=== PATIENT | female | born 1980 | race Caucasian/White ===

== ENCOUNTER 2019-12-20 12:44 | Emergency (ER) | payer SELFPAY ==
--- NOTE | 2019-12-20 13:13 | ER ---
Nurse's Notes [facility] Name: Vivian Kumar Age: 39 yrs Sex: Female : 1980 Arrival Date: 12/20/2019 Time: 12:47 Bed 28 Private MD: Diagnosis: Other otitis externa, right ear;Otitis media, unspecified, right ear Presentation: 12/20 13:05 Presenting complaint: Patient states: last Jul, we went to [facility] and my mg2 right ear got infected. i had a lot of antibiotic , steroid treatment but nothing seems to work. it also starts to bleed today. Transition of care: patient was not received from another setting of care. Onset of symptoms was July 2019. Risk Assessment: Do you want to hurt yourself or someone else? Patient reports no desire to harm self or others. Initial Sepsis Screen: Does the patient meet any 2 criteria? No. Patient's initial sepsis screen is negative. Does the patient have a suspected source of infection? No. Patient's initial sepsis screen is negative. Care prior to arrival: None. 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 - Coronavirus screen:: The patient has NOT traveled to [place] in the past 14 days. Proceed with normal triage process as indicated. - Social history:: Smoking status: Patient reports the use of cigarette tobacco products, smokes one pack cigarettes per day. - Ebola Screening: : No symptoms or risks identified at this time. Screenin:09 Abuse screen: Denies threats or abuse. Denies injuries from another. Nutritional mg2 screening: No deficits noted. Tuberculosis screening: No symptoms or risk factors identified. Fall Risk None identified. Assessment: 13:09 General: Appears in no apparent distress. comfortable, Behavior is calm, cooperative. mg2 Pain: Complains of pain in right ear. Neuro: Level of Consciousness is awake, alert, obeys commands, Oriented to person, place, time, situation. Cardiovascular: Capillary refill < 3 seconds Patient's skin is warm and dry. Respiratory: Airway is patent Respiratory effort is even, unlabored, Respiratory pattern is regular, symmetrical. GI: No signs and/or symptoms were reported involving the gastrointestinal system. : No signs and/or symptoms were reported regarding the genitourinary system. EENT: Reports pain in right ear. Derm: Skin is intact, is healthy with good turgor, Skin is pink, warm \T\ dry. normal. Musculoskeletal: Circulation, motion, and sensation intact. Capillary refill < 3 seconds. Vital Signs: 13:07 BP 108 / 87; Pulse 70; Resp 18; Temp 97.9; Pulse Ox 100% on R/A; Height 4 ft. 11 in. mg2 (149.86 cm); ED Course: 12:47 Patient arrived in ED. mr 12:48 Jenise March FNP-C is [facility]. kb 12:48 Magdi Hernandez MD is Attending Physician. kb 13:05 Lorenzo Giraldo, RN is Primary Nurse. mg2 13:07 Triage completed. mg2 13:07 Arm band placed on. mg2 13:10 Patient has correct armband on for positive identification. mg2 13:10 No provider procedures requiring assistance completed. Patient did not have IV access mg2 during this emergency room visit. Administered Medications: No medications were administered Outcome: 13:11 Discharge ordered by MD. kb 13:19 Discharged to home ambulatory. ca1 13:19 Condition: stable 13:19 Discharge instructions given to patient, Instructed on discharge instructions, follow up and referral plans. Demonstrated understanding of instructions, follow-up care, medications, Prescriptions given X 2. 13:20 Patient left the ED. ca1 Signatures: Jenise March FNP-C FNP-Jeanne Gisel Paiz Lorenzo Giraldo, RN RN mg2 Vero Ramirez RN RN ca1
--- NOTE | 2019-12-20 13:13 | EDPHYS ---
Physician Documentation [facility] Name: Vivian Kumar Age: 39 yrs Sex: Female : 1980 Arrival Date: 12/20/2019 Time: 12:47 Bed 28 Private MD: ED Physician Magdi Hernandez HPI: 12/20 13:22 This 39 yrs old Female presents to ER via Ambulatory with complaints of Ear kb Pain. 13:22 The patient presents with drainage, pain, tenderness. The complaints affect the right kb ear. Onset: The symptoms/episode began/occurred 6 month(s) ago. Modifying factors: The symptoms are alleviated by nothing, the symptoms are aggravated by touching. Associated signs and symptoms: The patient has no apparent associated signs or symptoms. Severity of symptoms: At their worst the symptoms were moderate in the emergency department the symptoms are unchanged. The patient has not experienced similar symptoms in the past. The patient has not recently seen a physician. 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 - Coronavirus screen:: The patient has NOT traveled to [place] in the past 14 days. Proceed with normal triage process as indicated. - Social history:: Smoking status: Patient reports the use of cigarette tobacco products, smokes one pack cigarettes per day. - Ebola Screening: : No symptoms or risks identified at this time. ROS: 13:20 Constitutional: Negative for fever, chills, and weight loss, Neck: Negative for injury, kb pain, and swelling, Cardiovascular: Negative for chest pain, palpitations, and edema, Respiratory: Negative for shortness of breath, cough, wheezing, and pleuritic chest pain, Abdomen/GI: Negative for abdominal pain, nausea, vomiting, diarrhea, and constipation, Back: Negative for injury and pain, MS/Extremity: Negative for injury and deformity, Skin: Negative for injury, rash, and discoloration, Neuro: Negative for headache, weakness, numbness, tingling, and seizure. 13:21 ENT: Positive for drainage from ear(s), ear pain. kb Exam: 13:21 Constitutional: This is a well developed, well nourished patient who is awake, alert, kb and in no acute distress. Head/Face: Normocephalic, atraumatic. Neck: Trachea midline, no thyromegaly or masses palpated, and no cervical lymphadenopathy. Supple, full range of motion without nuchal rigidity, or vertebral point tenderness. No Meningismus. Chest/axilla: Normal chest wall appearance and motion. Nontender with no deformity. No lesions are appreciated. Cardiovascular: Regular rate and rhythm with a normal S1 and S2. No gallops, murmurs, or rubs. Normal PMI, no JVD. No pulse deficits. Respiratory: Lungs have equal breath sounds bilaterally, clear to auscultation and percussion. No rales, rhonchi or wheezes noted. No increased work of breathing, no retractions or nasal flaring. Abdomen/GI: Soft, non-tender, with normal bowel sounds. No distension or tympany. No guarding or rebound. No evidence of tenderness throughout. Skin: Warm, dry with normal turgor. Normal color with no rashes, no lesions, and no evidence of cellulitis. MS/ Extremity: Pulses equal, no cyanosis. Neurovascular intact. Full, normal range of motion. Neuro: Awake and alert, GCS 15, oriented to person, place, time, and situation. Cranial nerves II-XII grossly intact. Motor strength 5/5 in all extremities. Sensory grossly intact. Cerebellar exam normal. Normal gait. 13:21 ENT: External ear(s): are unremarkable, Ear canal(s): erythema, that is moderate, of the right canal, swelling, that is moderate, of the right canal, TM's: bulging, on the right, erythema, that is moderate, on the right, Nose: is normal, Mouth: is normal, Posterior pharynx: is normal. Vital Signs: 13:07 BP 108 / 87; Pulse 70; Resp 18; Temp 97.9; Pulse Ox 100% on R/A; Height 4 ft. 11 in. mg2 (149.86 cm); MDM: 13:00 Patient medically screened. kb 13:17 Data reviewed: vital signs, nurses notes. Data interpreted: Pulse oximetry: on room air kb is 100 %. Interpretation: normal. Counseling: I had a detailed discussion with the patient and/or guardian regarding: the historical points, exam findings, and any diagnostic results supporting the discharge/admit diagnosis, the need for outpatient follow up, an ENT specialist, to return to the emergency department if symptoms worsen or persist or if there are any questions or concerns that arise at home. Administered Medications: No medications were administered Disposition: 14:31 Co-signature as Attending Physician, Magdi Hernandez MD. rn Disposition: 12/20/19 13:11 Discharged to Home. Impression: Other otitis externa, right ear, Otitis media, unspecified, right ear. - Condition is Stable. - Discharge Instructions: Otitis Externa, [id number], Otitis Media, Adult, Dkgp-[id number], Ear Drops, Adult, [id number]. - Prescriptions for cefdinir 300 mg Oral capsule - take 1 capsule by ORAL route every 12 hours for 10 days; 20 capsule. Ciprodex 0.3- 0.1 % Otic Drops, Suspension - instill 4 drop by OTIC route every 12 hours for 7 days , for ears ONLY; 1 Container. - Medication Reconciliation Form, Thank You Letter, Antibiotic Education, Prescription Opioid Use form. - Follow up: Emergency Department; When: As needed; Reason: Worsening of condition. Follow up: Private Physician; When: 2 - 3 days; Reason: Recheck today's complaints, Continuance of care, Re-evaluation by your physician. Signatures: Jenise March, CHIEF WHEELAGE CLERK-C CHIEF WHEELAGE CLERK-Ckb Magdi Hernandez MD MD rn Gardose, Michele, RN RN mg2 Vero Ramirez RN RN ca1 Corrections: (The following items were deleted from the chart) 13:20 13:11 12/20/2019 13:11 Discharged to Home. Impression: Other otitis externa, right ear; ca1 Otitis media, unspecified, right ear. Condition is Stable. Forms are Medication Reconciliation Form, Thank You Letter, Antibiotic Education, Prescription Opioid Use. Follow up: Emergency Department; When: As needed; Reason: Worsening of condition. Follow up: Private Physician; When: 2 - 3 days; Reason: Recheck today's complaints, Continuance of care, Re-evaluation by your physician. kb 13:21 13:20 Constitutional: Negative for fever, chills, and weight loss, Neck: Negative for kb injury, pain, and swelling, Cardiovascular: Negative for chest pain, palpitations, and edema, Respiratory: Negative for shortness of breath, cough, wheezing, and pleuritic chest pain, Abdomen/GI: Negative for abdominal pain, nausea, vomiting, diarrhea, and constipation, MS/Extremity: Negative for injury and deformity, Skin: Negative for injury, rash, and discoloration, Neuro: Negative for headache, weakness, numbness, tingling, and seizure, kb
[2019-12-20 14:11] VITALS: BP 108/87; TEMP 97.9; O2SAT 100
== END 2019-12-20 13:20 | disposition home or self-care (01) ==
LOC: ER 12:44
DX: H66.91 Otitis media, unspecified, right ear (principal); H60.91 Unspecified otitis externa, right ear
CPT/HCPCS: 99282

== ENCOUNTER 2020-04-02 13:26 | Emergency (ER) | payer SELFPAY ==
--- OUTSIDE RECORDS SUMMARY | 2020-04-02 14:07 | XMS REPORT | Continuity of Care Document ---
:1980 Author Organization [facility] t Address [address] [place] [address] Care Team Providers Name Role Phone Juan Ramon COCHRAN Primary Care Physician Payers Payer Name Policy Type Policy Number Effective Date Expiration Date S ource Problems This patient has no known problems. Allergies, Adverse Reactions, Alerts Allergy Allergy Status Severity Reaction(s) Onset Inactive Treating Comm ents Source Name Type Date Date Clinician Pen[place] DA Active U 2018-11 [facility] ins 11-05 [facility] Medications This patient has no known medications. Procedures This patient has no known procedures. Encounters Start End Encounter Admission Attending Care Care Encounter Source Date/Time Date/Time Type Type Clinicians Facility Department ID 2019-09-08 2019-09-08 Departed [facility] [id number] [address] [place] [address]. 14:55:00 15:43:00 Emergency [facility] Results This patient has no known results.
[2020-04-02 14:30] LABS: Absolute Lymphocytes (CBC) 1.4 K/uL (0.7-4.9); Basophils % 0.7 % (0-1.3); Lymphocytes % 15.4 % (15.3-44.8); MPV 7.8 fL (7.6-11.3); RBC Red Blood Cell Count 4.84 M/uL (3.86-4.86)
[2020-04-02] MEDS ORDERED: ONDANSETRON 4 MG/2 ML VIAL ONE (14:40)
[2020-04-02] MEDS ORDERED: MORPHINE 4 MG/ML SYR ONE ×2 (14:40→16:29)
[2020-04-02] MEDS ORDERED: NA CHLORIDE 0.9% 1,000 ML ONE (14:41)
--- NOTE | 2020-04-02 14:59 | RAD REPORT ---
EXAM DESCRIPTION: CT - Abdomen Pelvis W Contrast - 04/02/2020 2:47 pm CLINICAL HISTORY: Abdominal pain COMPARISON: none. TECHNIQUE: Computed axial tomography of the abdomen pelvis was obtained. 100 cc Isovue-300 was admin istered intravenously. Oral contrast was not requested which limits evaluation of bowel All CT scans are performed using dose optimization technique as appropriate and may include automated exposure control or mA/KV adjustment according to patient size. FINDINGS: The liver, spleen, pancreas, adrenal and kidneys appear unremarkable. There is no evidence of diverticulitis. 2 centimeter left ovarian cyst without significant free fluid IMPRESSION: 2 centimeter left ovarian cyst without significant free fluid
[2020-04-02] MEDS ORDERED: PROMETHAZINE INJ 25 MG/ML AMP ONE (15:31)
[2020-04-02 15:37] LABS: Albumin 3.8 g/dL (3.4-5.0); Bilirubin Direct 0.3 mg/dL (0-0.2); Bilirubin Total 1.2 mg/dL (0.2-1.0); Potassium 3.7 mmol/L (3.5-5.1); Protein, Total 7.2 g/dL (6.4-8.2)
--- NOTE | 2020-04-02 16:00 | ER ---
Nurse's Notes [facility] Name: Vivian Kumar Age: 39 yrs Sex: Female : 1980 Arrival Date: 04/02/2020 Time: 13:28 Bed 20 Private MD: Diagnosis: Nausea and vomiting;Other ovarian cysts-left Presentation: 04/02 13:37 Chief complaint: Patient states: Mid-abdominal pain that radiates to L side, describes ss as burning, also c/o N/V, denies fever. Coronavirus screen: Patient denies a cough. Patient denies shortness of breath or difficulty breathing. Patient denies measured and/or subjective temperature greater than 100.4F prior to today's visit. Patient denies contact with known and/or suspected case of COVID-19. Ebola Screen: No symptoms or risks identified at this time. Initial Sepsis Screen: Does the patient meet any 2 criteria? No. Patient's initial sepsis screen is negative. Does the patient have a suspected source of infection? No. Patient's initial sepsis screen is negative. Risk Assessment: Do you want to hurt yourself or someone else? Patient reports no desire to harm self or others. Onset of symptoms was April 02, 2020. 13:37 Method Of Arrival: Ambulatory ss 13:37 Acuity: NORBERTO 3 ss Historical: - Allergies: 13:39 PENICILLINS; ss - PMHx: 13:39 COPD; cancer, cervical; ss - PSHx: 13:39 Hysterectomy; Appendectomy; Tonsillectomy; ss - Immunization history:: Adult Immunizations unknown. - Social history:: Smoking status: Patient reports the use of cigarette tobacco products, smokes one pack cigarettes per day. Screenin:00 Abuse screen: Denies threats or abuse. Nutritional screening: No deficits noted. Tuberculosis screening: No symptoms or risk factors identified. Fall Risk None identified. Assessment: 14:00 General: Appears uncomfortable, Behavior is cooperative. Pain: Complains of pain in left lower quadrant Pain does not radiate. Quality of pain is described as burning, Pain began 1 day ago. Neuro: Level of Consciousness is awake, alert, Oriented to person, place, time, situation. Cardiovascular: Capillary refill < 3 seconds Patient's skin is warm and dry. Respiratory: Respiratory effort is even, unlabored, Respiratory pattern is regular, symmetrical. GI: Abdomen is non-distended, Last BM was April 01, 2020. Bowel sounds present X 4 quads. Abd is soft Abdomen is tender to palpation in left lower quadrant Reports nausea, vomiting. : Denies burning with urination. Derm: Skin is intact, is healthy with good turgor. 15:00 Reassessment: Pt to radiology for CT scan via stretcher. Nausea and pain medication ah given prior. 16:00 Reassessment:. Vital Signs: 13:37 Pulse 88; Resp 26; Temp 97.9; Pulse Ox 100% on R/A; Weight 56.7 kg; Height 4 ft. 11 in. ss (149.86 cm); 14:15 BP 93 / 59; Pulse 67; Resp 22; Pulse Ox 99% ; ah 15:00 BP 101 / 49; Pulse 56; Resp 18; Pulse Ox 100% ; ah 15:30 BP 116 / 87; Pulse 66; Resp 20; Pulse Ox 100% ; ah 16:00 BP 100 / 56; Pulse 52; Resp 18; Pulse Ox 100% ; ah 16:30 BP 119 / 76; Pulse 50; Resp 18; Pulse Ox 100% ; ah 13:37 Body Mass Index 25.25 (56.70 kg, 149.86 cm) ED Course: 13:28 Patient arrived in ED. ag5 13:39 Triage completed. ss 13:40 Arm band placed on Patient placed in waiting room, Patient notified of wait time. ss 13:57 Sohail Borges NP is PHCP. pm1 13:57 Mitchell Diop MD is Attending Physician. pm1 14:01 Maria Elena Starr, AMRIT is Primary Nurse. ah 14:05 Missed attempt(s): 22 gauge in right antecubital area. Bleeding controlled, band aid ah applied, catheter tip intact. 14:10 Inserted saline lock: 20 gauge in left antecubital area, using aseptic technique. ah 14:47 CT Abd/Pelvis - IV Contrast Only In Process Unspecified. EDMS 16:00 Patient has correct armband on for positive identification. Placed in gown. Bed in low ah position. Call light in reach. Side rails up X 1. Pulse ox on. NIBP on. 16:30 No provider procedures requiring assistance completed. ah 16:30 IV discontinued, intact, bleeding controlled, No redness/swelling at site. Pressure ah dressing applied. Administered Medications: 14:20 Drug: Zofran (Ondansetron) 4 mg Route: IVP; Site: left antecubital; 16:46 Follow up: Response: No adverse reaction 14:20 Drug: morphine 4 mg Route: IVP; Site: left antecubital; 16:46 Follow up: Response: No adverse reaction 15:03 Drug: NS 0.9% 1000 ml Route: IV; Rate: 1000 ml; Site: left antecubital; 16:48 Follow up: Response: No adverse reaction; IV Status: Completed infusion; IV Intake: ah 1000ml 15:30 Drug: Phenergan 12.5 mg Route: IVP; Site: left antecubital; 16:47 Follow up: Response: No adverse reaction 16:15 Drug: morphine 4 mg Route: IVP; Site: left antecubital; 16:49 Follow up: Response: No adverse reaction ah Intake: 16:48 IV: 1000ml; Total: 1000ml. Outcome: 16:00 Discharge ordered by . pm1 16:30 Discharged to home ambulatory. 16:30 Condition: good 16:30 Discharge instructions given to patient, Instructed on discharge instructions, follow up and referral plans. medication usage, Demonstrated understanding of instructions, follow-up care, medications, Prescriptions given X 3. 16:55 Patient left the ED. Signatures: Dispatcher [employer] EDMS Ashlyn Burns RN RN Sohail Borges NP IT SENIOR SOFTWARE ENGINEER JAVA pm1 Marty Solano [facility] Maria Elena Starr RN AMRIT
--- NOTE | 2020-04-02 16:00 | EDPHYS ---
Physician Documentation [facility] Name: Vivian Kumar Age: 39 yrs Sex: Female : 1980 Arrival Date: 04/02/2020 Time: 13:28 Bed 20 Private MD: ED Physician Mitchell Diop HPI: 04/02 14:16 This 39 yrs old Female presents to ER via Ambulatory with complaints of pm1 Vomiting, Abdominal Problem. 14:16 The patient presents to the emergency department with nausea, vomiting, abdominal pain, pm1 of the left upper quadrant and left lower quadrant. Onset: The symptoms/episode began/occurred this morning, at 02:00. Possible causes: possibly hot dogs. The symptoms are aggravated by nothing. The symptoms are alleviated by nothing. Associated signs and symptoms: Pertinent negatives: dysuria, fever. Severity of symptoms: in the emergency department the symptoms are worse. The patient has not experienced similar symptoms in the past. The patient has not recently seen a physician. Historical: - Allergies: 13:39 PENICILLINS; ss - PMHx: 13:39 COPD; cancer, cervical; ss - PSHx: 13:39 Hysterectomy; Appendectomy; Tonsillectomy; ss - Immunization history:: Adult Immunizations unknown. - Social history:: Smoking status: Patient reports the use of cigarette tobacco products, smokes one pack cigarettes per day. ROS: 14:16 Constitutional: Negative for fever, chills, and weight loss, Neck: Negative for injury, pm1 pain, and swelling, Cardiovascular: Negative for chest pain, palpitations, and edema, Respiratory: Negative for shortness of breath, cough, wheezing, and pleuritic chest pain. 14:16 Back: Negative for injury and pain, : Negative for injury, bleeding, discharge, and swelling, MS/Extremity: Negative for injury and deformity, Skin: Negative for injury, rash, and discoloration. 14:16 Neuro: Negative for headache, weakness, numbness, tingling, and seizure. 14:16 Abdomen/GI: Positive for abdominal pain, nausea and vomiting, of the left upper quadrant and left lower quadrant, Negative for diarrhea, constipation. Exam: 14:16 Constitutional: This is a well developed, well nourished patient who is awake, alert, pm1 and in no acute distress. Head/Face: Normocephalic, atraumatic. 16:32 Chest/axilla: Normal chest wall appearance and motion. Nontender with no deformity. pm1 No lesions are appreciated. Cardiovascular: Regular rate and rhythm with a normal S1 and S2. No gallops, murmurs, or rubs. Normal PMI, no JVD. No pulse deficits. Respiratory: Lungs have equal breath sounds bilaterally, clear to auscultation and percussion. No rales, rhonchi or wheezes noted. No increased work of breathing, no retractions or nasal flaring. 16:32 Back: No spinal tenderness. No costovertebral tenderness. Full range of motion. Skin: Warm, dry with normal turgor. Normal color with no rashes, no lesions, and no evidence of cellulitis. MS/ Extremity: Pulses equal, no cyanosis. Neurovascular intact. Full, normal range of motion. 16:32 Abdomen/GI: Inspection: abdomen appears normal, Bowel sounds: normal, Palpation: soft, in all quadrants, mild abdominal tenderness, in the left upper quadrant and left lower quadrant, mass, is not appreciated, rebound tenderness, is not appreciated. 16:32 Neuro: Exam negative for acute changes, Orientation: is normal, Mentation: is normal, Motor: is normal, moves all fours. Vital Signs: 13:37 Pulse 88; Resp 26; Temp 97.9; Pulse Ox 100% on R/A; Weight 56.7 kg; Height 4 ft. 11 in. ss (149.86 cm); 14:15 BP 93 / 59; Pulse 67; Resp 22; Pulse Ox 99% ; ah 15:00 BP 101 / 49; Pulse 56; Resp 18; Pulse Ox 100% ; ah 15:30 BP 116 / 87; Pulse 66; Resp 20; Pulse Ox 100% ; ah 16:00 BP 100 / 56; Pulse 52; Resp 18; Pulse Ox 100% ; ah 16:30 BP 119 / 76; Pulse 50; Resp 18; Pulse Ox 100% ; ah 13:37 Body Mass Index 25.25 (56.70 kg, 149.86 cm) MDM: 14:13 Patient medically screened. pm1 15:59 Data reviewed: vital signs. Data interpreted: Pulse oximetry: on room air is 100 %. pm1 Interpretation: normal. Counseling: I had a detailed discussion with the patient and/or guardian regarding: the historical points, exam findings, and any diagnostic results supporting the discharge/admit diagnosis, lab results, radiology results, the need for outpatient follow up, to return to the emergency department if symptoms worsen or persist or if there are any questions or concerns that arise at home. 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 pm1 04/02 14:16 Order name: Basic Metabolic Panel; Complete Time: 15:59 pm1 04/02 14:16 Order name: CBC with Diff; Complete Time: 14:33 pm1 04/02 14:16 Order name: Hepatic Function; Complete Time: 15:59 pm1 04/02 14:16 Order name: Lipase; Complete Time: 15:59 pm1 04/02 15:39 Order name: Urine Dipstick--Ancillary (enter results) 04/02 15:39 Order name: Urine --Ancillary (enter results) 04/02 14:16 Order name: IV Saline Lock; Complete Time: 14:30 pm1 04/02 14:16 Order name: CT Abd/Pelvis - IV Contrast Only; Complete Time: 15:13 pm1 04/02 15:50 Order name: CREATININE WHOLE BLOOD; Complete Time: 15:59 EDMS 04/02 14:16 Order name: Labs collected and sent; Complete Time: 14:30 pm1 04/02 14:16 Order name: Urine Dipstick-Ancillary (obtain specimen); Complete Time: 16:07 pm1 04/02 14:43 Order name: Labs - recollect needed: Chem 7; Complete Time: 15:10 ss Administered Medications: 14:20 Drug: Zofran (Ondansetron) 4 mg Route: IVP; Site: left antecubital; 16:46 Follow up: Response: No adverse reaction 14:20 Drug: morphine 4 mg Route: IVP; Site: left antecubital; ah 16:46 Follow up: Response: No adverse reaction 15:03 Drug: NS 0.9% 1000 ml Route: IV; Rate: 1000 ml; Site: left antecubital; 16:48 Follow up: Response: No adverse reaction; IV Status: Completed infusion; IV Intake: ah 1000ml 15:30 Drug: Phenergan 12.5 mg Route: IVP; Site: left antecubital; 16:47 Follow up: Response: No adverse reaction 16:15 Drug: morphine 4 mg Route: IVP; Site: left antecubital; 16:49 Follow up: Response: No adverse reaction Disposition: 19:41 Co-signature as Attending Physician, Mitchell Diop MD. [email or web address] Disposition: 04/02/20 16:00 Discharged to Home. Impression: Nausea and vomiting, Other ovarian cysts - left. - Condition is Stable. - Discharge Instructions: Food Poisoning, Nausea and Vomiting, Adult, Ovarian Cyst, Viral Gastroenteritis, Adult. - Prescriptions for Bentyl 20 mg Oral Tablet - take 1 tablet by ORAL route every 6 hours As needed; 20 tablet. Phenergan 25 mg Rectal Suppository - insert 1 suppository by RECTAL route every 6 hours As needed; 12 suppository. promethazine 25 mg Oral Tablet - take 1 tablet by ORAL route every 6 hours As needed; 20 tablet. Tylenol- Codeine #3 300-30 mg Oral Tablet - take 2 tablets by ORAL route every 6 hours As needed; 20 tablet. - Medication Reconciliation Form, Thank You Letter, Antibiotic Education, Prescription Opioid Use form. - Follow up: Emergency Department; When: As needed; Reason: Worsening of condition. Follow up: Private Physician; When: 2 - 3 days; Reason: Recheck today's complaints, Continuance of care, Re-evaluation by your physician. - Problem is new. - Symptoms have improved. Signatures: Dispatcher [employer] EDMS Ashlyn Burns RN AMRIT Sohail Borges, AMARJIT SCHEDULING REPRESENTATIVE pm1 Maria Elena Starr RN RN ah Holmes, Maurice, MD MD [email or web address] Corrections: (The following items were deleted from the chart) 16:55 16:00 04/02/2020 16:00 Discharged to Home. Impression: Nausea and vomiting; Other ah ovarian cysts - left. Condition is Stable. Forms are Medication Reconciliation Form, Thank You Letter, Antibiotic Education, Prescription Opioid Use. Follow up: Emergency Department; When: As needed; Reason: Worsening of condition. Follow up: Private Physician; When: 2 - 3 days; Reason: Recheck today's complaints, Continuance of care, Re-evaluation by your physician. Problem is new. Symptoms have improved. pm1
[2020-04-02 17:02] VITALS: TEMP 97.9; O2SAT 100
[2020-04-02 20:46] LABS: Urine Blood NEGATIVE (NEG); Urine Glucose NEGATIVE (NEG); Urine Protein NEGATIVE (NEG); Urine pH 7.5 (5.0-7.0)
== END 2020-04-02 16:55 | disposition home or self-care (01) ==
LOC: ER 13:26
DX: N83.299 Other ovarian cyst, unspecified side (principal); J44.9 Chronic obstructive pulmonary disease, unspecified; F17.210 Nicotine dependence, cigarettes, uncomplicated; Z88.0 Allergy status to penicillin
CPT/HCPCS: 36415; 74177; 80048; 80076; 81003; 81025; 82565; 83690; 85025; J2405; J2550; J7030; Q9967